=== PATIENT | male | born 1940 | race Caucasian/White ===

== ENCOUNTER 2016-07-14 12:46 | Emergency (ER) | payer MEDICAID, OTHER ==
[2016-07-14 13:43] VITALS: BP 157/89
--- NOTE | 2016-07-14 14:29 | EDM.PDOC ---
ED HPI HEAD INJURY - General Chief Complaint: Head Injury Stated Complaint: [facility]AL [facility] Time Seen by Provider: 07/14/16 12:50 Source: Reports: EMS History Limitations: Reports: Altered mental status - History of Present Illness INITIAL COMMENTS - FREE TEXT/NARRATIVE: History of present illness: [75-year-old male presents by a balance after slipping on the ice and falling backwards and hitting the back of his head. He had loss of consciousness for 5 minutes. He is presenting here alert but confused and amnestic to the event. He has no other pain complaints and pain in the back of his head. He is disoriented in that he thinks he is in [facility] and apparently he did live in the [facility] at one point. There is a friend with him but he is known for 35 years and he does not know her name but does note that he has seen her before.] Review of systems: As per history of present illness and below otherwise all systems reviewed and negative. Past medical history: As per history of present illness and as reviewed below otherwise noncontributory. Surgical history: As per history of present illness and as reviewed below otherwise noncontributory. Social history: No reported history of drug or alcohol abuse. Family history: As per history of present illness and as reviewed below otherwise noncontributory. Physical exam: HEENT: Examination reveals a contusion to the right parietal occipital area but no bleeding skin no step-off deformities or palpable there is some erythema present at the time of initial examination his pupils were equal round reactive to light extraocular movements were intact he was counting fingers without difficulty his anterior face was intact and stable his neck was supple and nontender trachea midline. He has no otorrhea Lungs: Clear to auscultation, breath sounds equal bilaterally, chest nontender. Heart: S1S2, regular, negative for clicks, rubs, or JVD. Abdomen: Soft, nondistended, nontender. Negative for masses or hepatosplenomegaly. Negative for costovertebral tenderness. Pelvis: Stable nontender. Genitourinary: Deferred. Rectal: Deferred. Extremities: Atraumatic, negative for cords or calf pain. Neurovascular unremarkable. Neuro: Awake, alert, but disoriented. Bryant Coma Scale of 14. Cranial nerves II through XII unremarkable. Cerebellum unremarkable. Motor and sensory unremarkable throughout. Exam nonfocal. Diagnostics: [Head CT showing a nondisplaced right temporal and parietal skull fracture with trace pneumocephalus there are other findings including a subdural and I refer you to that report for details.] Therapeutics: [We have him in a soft [place] collar and we do have IV access but have not given any medications to improve he has been hemodynamically stable thus far with no progression of loss of neurologic function] Impression: [Open head injury with concussion and subdural hematoma] Plan: [He will be transferred by ground to [facility] Dr. Sherman the neurosurgeon accepting be going to the emergency room to be evaluated by the trauma team first] Definitive disposition and diagnosis as appropriate pending reevaluation and review of above. - Related Data Allergies/ADRs: Allergies Allergy/AdvReac Type Severity Reaction Status Date / Time Unable to Assess Allergy Unverified 07/14/16 13:42 Home Meds: Home Meds Hydrochlorothiazide/Lisinopril [Lisinopril-HCTZ 20-25 MG] 1 tab PO DAILY [History] Past Medical History HEENT History: Reports: Hard of hearing, Impaired vision Cardiovascular History: Reports: Hypertension Endocrine/Metabolic History: Reports: Diabetes, type II Other Endocrine/Metabolic History: pre diabetic - Past Surgical History GI Surgical History: Reports: Hernia, inguinal Musculoskeletal Surgical History: Reports: Knee replacement Social & Family History - Tobacco Use Smoking Status *Q: Never Smoker - Caffeine Use Caffeine Use: Reports: Coffee - Recreational Drug Use Recreational Drug Use: No ED ROS GENERAL - Review of Systems Review Of Systems: ROS reveals no pertinent complaints other than HPI. ED EXAM, HEAD INJURY - Physical Exam Exam: See Below Course - Vital Signs Last Recorded V/S: Last Vital Signs Temp 35.9 C 07/14/16 13:42 Pulse 60 07/14/16 13:42 Resp 14 07/14/16 13:42 BP 157/89 H 07/14/16 13:42 Pulse Ox 95 07/14/16 13:42 - Orders/Labs/Meds Orders: Active Orders 24 hr Category Date Time Status Head wo Cont [CT] Stat Exams 07/14/16 12:50 Taken Departure - Departure Time of Disposition: 14:29 Disposition: DC/Tfer to Acute Hospital 02 Condition: fair Clinical Impression: Open head injury Qualifiers: Encounter type: initial encounter Qualified Code(s): S01.90XA - Unspecified open wound of unspecified part of head, initial encounter Subdural hematoma caused by concussion Qualifiers: Encounter type: initial encounter Loss of consciousness presence/duration: with LOC of 30 min or less Qualified Code(s): S06.5X1A - Traumatic subdural hemorrhage with loss of consciousness of 30 minutes or less, initial encounter Forms: ED Department Discharge - My Orders Last 24 Hours: My Active Orders 07/14/16 12:50 Head wo Cont [CT] Stat - Assessment/Plan Last 24 Hours: My Active Orders 07/14/16 12:50 Head wo Cont [CT] Stat
== END 2016-07-14 14:53 ==
LOC: JP.ED 12:46
DX: S06.5X1A Traumatic subdural hemorrhage with loss of consciousness of 30 minutes or less, initial encounter (principal); S01.90XA Unspecified open wound of unspecified part of head, initial encounter; I10 Essential (primary) hypertension; Z79.899 Other long term (current) drug therapy; Z96.659 Presence of unspecified artificial knee joint; Z98.890 Other specified postprocedural states; W00.0XXA Fall on same level due to ice and snow, initial encounter
CPT/HCPCS: 70450; 99285; 99285-25